=== PATIENT | female | born 1980 | race Caucasian/White ===

== ENCOUNTER 2022-11-03 10:53 | Emergency (ER) | payer OTHER ==
[~2022-11-03] VITALS: Ht 147.3 cm; Wt 92.0 kg
[2022-11-03 12:12] LABS: HEMATOCRIT 39.9 % (36.0-47.0); MEAN CORPUSCULAR HEMOGLOBIN 31.3 pg (27.0-33.0); MEAN CORPUSCULAR HGB CONC 32.6 g/dl (32.0-36.5); MEAN CORPUSCULAR VOLUME 95.9 fl (80.0-96.0); PLATELET COUNT, AUTOMATED 291 10^3/uL (150-450); RED BLOOD COUNT 4.16 10^6/uL (4.00-5.40); WHITE BLOOD COUNT 8.1 10^3/uL (4.0-10.0)
[2022-11-03 12:36] LABS: BLOOD UREA NITROGEN 10 MG/DL (9-23); CALCIUM LEVEL 8.6 MG/DL (8.5-10.1); CARBON DIOXIDE LEVEL 27 MMOL/L (20-31); CHLORIDE LEVEL 106 MMOL/L (98-107); CREATININE FOR GFR 0.82 MG/DL (0.55-1.30); GLOMERULAR FILTRATION RATE > 60.0 (>58); GLUCOSE, FASTING 83 MG/DL (60-100); POTASSIUM SERUM 3.9 MMOL/L (3.5-5.1); SODIUM LEVEL 142 MMOL/L (136-145)
[2022-11-03 12:49] LABS: HCG, SERUM QUALITATIVE NEGATIVE (NEGATIVE)
[2022-11-03] MEDS ORDERED: DULO1CAP4 PO (13:19)
[2022-11-03] MEDS ORDERED: LEVO2TA PO (13:19)
[2022-11-03] MEDS ORDERED: PANT40TA29 PO (13:19)
[2022-11-03] MEDS ORDERED: CETI-24 PO (13:19)
[2022-11-03] MEDS ORDERED: ISOVUE-370 76% 100ML VIAL As Ordered ONE (14:03)
[2022-11-03 14:24] LABS: INR 0.89; PROTHROMBIN TIME 12.2 SECONDS (12.5-14.5)
[2022-11-03 14:25] LABS: PARTIAL THROMBOPLASTIN TIME 24.7 SECONDS (24.8-34.2)
[2022-11-03] MEDS ORDERED: ONDANSETRON 4MG 2ML VIAL IV ONE (14:30)
[2022-11-03] MEDS ORDERED: HEPARIN DRIP 25,000 UNITS in IV 1 EA IV SCH (15:25)
[2022-11-03] MEDS ORDERED: HEPARIN SOD (PORCINE) 5000UNITS/ML 1ML VIAL/SYRINGE IV ONE (15:25)
[2022-11-03] MEDS ORDERED: NS 1,000 ML IV SCH (15:25)
[2022-11-03] MEDS ORDERED: ASPIRIN 81MG CHEW TABLET PO ONE (15:25)
[2022-11-03] MEDS ORDERED: ALPRAZolam 0.25 MG TAB PO ONE (15:40)
[2022-11-03 18:21] VITALS: BP 121/57; TEMP 97.9; O2SAT 100
== END 2022-11-03 18:29 | disposition short-term general hospital (02) ==
LOC: M ED 10:53
DX: I21.4 Non-ST elevation (NSTEMI) myocardial infarction (principal); K21.9 Gastro-esophageal reflux disease without esophagitis; F41.9 Anxiety disorder, unspecified; Z88.2 Allergy status to sulfonamides; Z88.8 Allergy status to other drugs, medicaments and biological substances; Z79.52 Long term (current) use of systemic steroids; Z79.899 Other long term (current) drug therapy
CPT/HCPCS: 70450; 71045; 71275; 80048; 84484; 84703; 85027; 85610; 85730; 87635; 93005; 93041; 94760; 96374; 96375; 99285; J2405; Q9967

== ENCOUNTER 2023-01-12 21:07 | Observation (INO) | payer OTHER ==
[~2023-01-12] VITALS: Ht 147.3 cm; Wt 93.8 kg
[~2023-01-12 21:07] MED LIST: CETI-24 PO; DULO1CAP4 PO; LEVO2TA PO; PANT40TA29 PO
[2023-01-12 21:51] LABS: BASO # 0.1 10^3/uL (0.0-0.2); BASO % 0.5 % (0.0-1.0); EOS # 0.1 10^3/uL (0.0-0.5); EOS % 0.6 % (0.0-3.0); HEMATOCRIT 40.8 % (36.0-47.0); HEMOGLOBIN 12.9 g/dl (12.0-15.5); LYMPH # 1.4 10^3/uL (1.5-5.0); LYMPH % 13.1 % (24.0-44.0); MEAN CORPUSCULAR HGB CONC 31.6 g/dl (32.0-36.5); MEAN CORPUSCULAR VOLUME 88.5 fl (80.0-96.0); MONO # 0.6 10^3/uL (0.0-0.8); MONO % 5.9 % (2.0-8.0); NEUTROPHILS # 8.5 10^3/uL (1.5-8.5); NEUTROPHILS % 79.5 % (36.0-66.0); PLATELET COUNT, AUTOMATED 342 10^3/uL (150-450); RED BLOOD COUNT 4.61 10^6/uL (4.00-5.40); WHITE BLOOD COUNT 10.7 10^3/uL (4.0-10.0)
[2023-01-12 22:16] LABS: CK-MB VALUE MASS 1.3 NG/ML (<3.6)
[2023-01-12 22:17] LABS: BLOOD UREA NITROGEN 10 MG/DL (9-23); CALCIUM LEVEL 9.1 MG/DL (8.5-10.1); CARBON DIOXIDE LEVEL 23 MMOL/L (20-31); CHLORIDE LEVEL 107 MMOL/L (98-107); CPK CREATINE PHOSPHOKINASE 53 U/L (34-145); CREATININE FOR GFR 0.73 MG/DL (0.55-1.30); GLOMERULAR FILTRATION RATE > 60.0 (>58); GLUCOSE, FASTING 80 MG/DL (60-100); MB/CK RELATIVE INDEX 2.45 (< OR =4); POTASSIUM SERUM 3.3 MMOL/L (3.5-5.1); SODIUM LEVEL 140 MMOL/L (136-145)
[2023-01-12] MEDS ORDERED: HEPARIN DRIP 25,000 UNITS in IV 1 EA IV SCH (22:35)
[2023-01-12 22:59] LABS: INR 0.98; PROTHROMBIN TIME 12.7 SECONDS (12.5-14.5)
[2023-01-12 23:00] LABS: PARTIAL THROMBOPLASTIN TIME 23.9 SECONDS (24.8-34.2)
[2023-01-12 23:08] LABS: CK-MB VALUE MASS < 1.0 NG/ML (<3.6)
[2023-01-12 23:09] LABS: CPK CREATINE PHOSPHOKINASE 42 U/L (34-145); MB/CK RELATIVE INDEX 2.38 (< OR =4)
[2023-01-12] MEDS ORDERED: ISOVUE-370 76% 100ML VIAL As Ordered ONE (23:20)
[2023-01-13] MEDS ORDERED: ONDANSETRON 4MG 2ML VIAL As Ordered ONE (02:09)
[2023-01-13 04:04] LABS: CK-MB VALUE MASS < 1.0 NG/ML (<3.6)
[2023-01-13 04:09] LABS: CPK CREATINE PHOSPHOKINASE 39 U/L (34-145); MB/CK RELATIVE INDEX 2.56 (< OR =4)
[2023-01-13] MEDS ORDERED: DULoxetine 20MG CAP (CYMBALTA) PO ONE (05:15)
[2023-01-13 05:16] LABS: INR 1.1; PROTHROMBIN TIME 13.9 SECONDS (12.5-14.5)
[2023-01-13 05:17] LABS: PARTIAL THROMBOPLASTIN TIME 39.1 SECONDS (24.8-34.2)
[2023-01-13] MEDS ORDERED: LEVOTHYROXINE 100MCG TABLET (0.1MG) PO SCH (06:00)
[2023-01-13] MEDS ORDERED: DULoxetine 20MG CAP (CYMBALTA) PO SCH (09:00)
[2023-01-13] MEDS ORDERED: ONDANSETRON 4MG 2ML VIAL IV ONE (09:40)
[2023-01-13 11:39] LABS: INR 1.07; PROTHROMBIN TIME 13.6 SECONDS (12.5-14.5)
[2023-01-13 11:40] LABS: PARTIAL THROMBOPLASTIN TIME 46.6 SECONDS (24.8-34.2)
[2023-01-13] MEDS ORDERED: HEPARIN SOD (PORCINE) 5000UNITS/ML 1ML VIAL/SYRINGE IV PRN (11:50)
[2023-01-13] MEDS ORDERED: HEPARIN DRIP 25,000 UNITS in IV 1 EA IV SCH (11:50)
[2023-01-13] MEDS ORDERED: NITROGLYCERIN 0.4MG SUBL TABLET SL PRN (14:25)
[2023-01-13] MEDS ORDERED: MED REC IN PROGRESS XX SCH (14:40)
[2023-01-13] MEDS ORDERED: ROSU10TA6 PO (14:46)
[2023-01-13] MEDS ORDERED: CONT1TAB PO (14:46)
[2023-01-13] MEDS ORDERED: METO1TAB32 PO (14:46)
[2023-01-13] MEDS ORDERED: HOME MED LIST COMPLETE! XX SCH (15:00)
[2023-01-13 15:10] LABS: CHOLESTEROL LEVEL 162 MG/DL (<200); CHOLESTEROL RISK RATIO 2.27 (<5); HDL CHOLESTEROL 71.1 MG/DL (>40); LDL CHOLESTEROL 57.7 MG/DL (<100); NON-HDL-C 90.9 MG/DL; TRIGLYCERIDES LEVEL 166 MG/DL (<150)
[2023-01-13] MEDS ORDERED: dilTIAZem 60 MG TAB PO ONE (15:10)
[2023-01-13] MEDS: CETIRIZINE (ZyrTEC) 10 MG TAB PO SCH (15:29)
[2023-01-13] MEDS: PANTOPRAZOLE 40MG TAB (PROTONIX) PO SCH (15:29)
[2023-01-13] MEDS: ROSUVASTATIN 10 MG TAB (CRESTOR) PO SCH (15:30)
[2023-01-13 15:57] LABS: HEMOGLOBIN A1c 4.3 % (4.0-6.0)
[2023-01-13 16:18] VITALS: BP 121/60; TEMP 97.8; O2SAT 95
[2023-01-13 20:23] VITALS: BP 105/59; TEMP 97.6; O2SAT 100
[2023-01-13] MEDS ORDERED: dilTIAZem 60 MG TAB PO SCH ×2 (21:00)
[2023-01-14 00:10] VITALS: BP 104/52; TEMP 98.3; O2SAT 97
[2023-01-14 04:36] VITALS: BP 104/58; TEMP 98.2; O2SAT 95
[2023-01-14] MEDS ORDERED: dilTIAZem 30 MG TAB PO SCH (06:00)
[2023-01-14] MEDS ORDERED: LEVOTHYROXINE 150MCG TABLET (0.15MG) PO SCH (06:00)
[2023-01-14 06:54] LABS: HEMATOCRIT 33.2 % (36.0-47.0); MEAN CORPUSCULAR HEMOGLOBIN 28.2 pg (27.0-33.0); MEAN CORPUSCULAR HGB CONC 31.9 g/dl (32.0-36.5); MEAN CORPUSCULAR VOLUME 88.3 fl (80.0-96.0); PLATELET COUNT, AUTOMATED 281 10^3/uL (150-450); RED BLOOD COUNT 3.76 10^6/uL (4.00-5.40)
[2023-01-14 06:59] LABS: HEMOGLOBIN 10.6 g/dl (12.0-15.5)
[2023-01-14 07:45] VITALS: BP 94/51; TEMP 97.8; O2SAT 99
[2023-01-14] MEDS ORDERED: ONDANSETRON 4MG 2ML VIAL IV ONE (07:55)
[2023-01-14 08:50] VITALS: BP 114/52
[2023-01-14] MEDS: PANTOPRAZOLE 40MG TAB (PROTONIX) PO SCH (08:53)
[2023-01-14 08:55] VITALS: BP 112/72
[2023-01-14] MEDS ORDERED: ENOXAPARIN 40MG/0.4ML SYRINGE (J1650 PER 10MG) SC SCH (09:00)
[2023-01-14] MEDS: CETIRIZINE (ZyrTEC) 10 MG TAB PO SCH (09:00)
[2023-01-14] MEDS: ROSUVASTATIN 10 MG TAB (CRESTOR) PO SCH (09:00)
[2023-01-14] MEDS ORDERED: LEVO150T7 PO (09:13)
[2023-01-14] MEDS ORDERED: NITR4TASL SL (09:13)
[2023-01-14] MEDS ORDERED: CARD40TA PO (09:13)
[2023-01-14 13:56] LABS: BLOOD UREA NITROGEN 9 MG/DL (7-21); CARBON DIOXIDE LEVEL 22 MEQ/L (22-30); CHLORIDE LEVEL 108 MEQ/L (98-107); CREATININE FOR GFR 0.7 MG/DL (0.7-1.5); GLOMERULAR FILTRATION RATE > 60.0 (>58); GLUCOSE, FASTING 93 MG/DL (70-99); POTASSIUM SERUM 3.5 MEQ/L (3.6-5.0); SODIUM LEVEL 141 MEQ/L (134-153)
[2023-01-14] MEDS ORDERED: POTA-298 PO (14:09)
[2023-01-14] MEDS ORDERED: DULoxetine 20MG CAP (CYMBALTA) PO SCH (21:00)
== END 2023-01-14 13:53 | disposition home or self-care (01) ==
LOC: EDBD 21:07 → M ED 21:07 → M ED INP 01-13 14:21 → M PCU 01-13 16:08
PROVIDERS: ADMIT Internal Medicine; ATTEND Internal Medicine
DX: R07.89 Other chest pain (principal); I20.89 Other forms of angina pectoris; R79.89 Other specified abnormal findings of blood chemistry; T38.1X5A Adverse effect of thyroid hormones and substitutes, initial encounter; E03.9 Hypothyroidism, unspecified; E78.5 Hyperlipidemia, unspecified; G25.81 Restless legs syndrome; Z88.2 Allergy status to sulfonamides; Z79.899 Other long term (current) drug therapy
CPT/HCPCS: 36415; 71045; 71275; 80047; 80048; 80061; 82550; 82553; 83036; 84443; 84484; 85025; 85027; 85610; 85730; 87486; 87581; 87633; 87798; 93005; 93041; 93306; 94760; 96361; 96372; 96374; 99285; J1650; J2405; Q9967

== ENCOUNTER 2023-04-15 09:15 | Observation (INO) | payer OTHER ==
[~2023-04-15] VITALS: Ht 147.3 cm; Wt 94.5 kg
[~2023-04-15 09:15] MED LIST changes: +CARD40TA PO; +CONT1TAB PO; +LEVO150T7 PO; +METO1TAB32 PO; +NITR4TASL SL; +POTA-298 PO; +ROSU10TA6 PO
[2023-04-15] MEDS ORDERED: NITROGLYCERIN 2% OINT 1 GM *U/D* PKT TOP ONE (09:40)
[2023-04-15] MEDS ORDERED: ASPIRIN 325 MG TAB PO ONE (09:40)
[2023-04-15 10:27] LABS: BASO # 0.1 10^3/uL (0.0-0.2); BASO % 0.6 % (0.0-1.0); EOS # 0.1 10^3/uL (0.0-0.5); EOS % 0.9 % (0.0-3.0); HEMATOCRIT 35.9 % (36.0-47.0); HEMOGLOBIN 10.7 g/dl (12.0-15.5); LYMPH # 1.5 10^3/uL (1.5-5.0); LYMPH % 19.2 % (24.0-44.0); MEAN CORPUSCULAR HEMOGLOBIN 23.5 pg (27.0-33.0); MEAN CORPUSCULAR HGB CONC 29.8 g/dl (32.0-36.5); MEAN CORPUSCULAR VOLUME 78.9 fl (80.0-96.0); MONO # 0.7 10^3/uL (0.0-0.8); MONO % 8.3 % (2.0-8.0); NEUTROPHILS # 5.5 10^3/uL (1.5-8.5); NEUTROPHILS % 70.7 % (36.0-66.0); PLATELET COUNT, AUTOMATED 276 10^3/uL (150-450); RED BLOOD COUNT 4.55 10^6/uL (4.00-5.40); WHITE BLOOD COUNT 7.8 10^3/uL (4.0-10.0)
[2023-04-15 10:42] LABS: CK-MB VALUE MASS < 1.0 NG/ML (<3.6); LIPASE 70 U/L (12-53)
[2023-04-15 10:44] LABS: ALBUMIN 3.6 G/DL (3.2-5.2); ALKALINE PHOSPHATASE 100 U/L (46-116); ALT/SGPT 24 U/L (7.0-40); AST/SGOT 40 U/L (<34); BILIRUBIN,DIRECT < 0.1 MG/DL (<0.4); BILIRUBIN,TOTAL 0.3 MG/DL (0.3-1.2); BLOOD UREA NITROGEN 8 MG/DL (9-23); CALCIUM LEVEL 8.8 MG/DL (8.5-10.1); CARBON DIOXIDE LEVEL 25 MMOL/L (20-31); CHLORIDE LEVEL 110 MMOL/L (98-107); CREATININE FOR GFR 0.69 MG/DL (0.55-1.30); GLOMERULAR FILTRATION RATE > 60.0 (>58); GLUCOSE, FASTING 87 MG/DL (60-100); POTASSIUM SERUM 4.3 MMOL/L (3.5-5.1); SODIUM LEVEL 142 MMOL/L (136-145); TOTAL PROTEIN 7.2 G/DL (5.7-8.2)
[2023-04-15 10:45] LABS: THYROID STIMULATING HORMONE 0.036 uIU/ML (0.55-4.78)
[2023-04-15 10:49] LABS: INR 1.01; PARTIAL THROMBOPLASTIN TIME 23.2 SECONDS (24.8-34.2)
[2023-04-15 11:00] LABS: HCG, SERUM QUALITATIVE NEGATIVE (NEGATIVE)
[2023-04-15 11:13] LABS: CPK CREATINE PHOSPHOKINASE 56 U/L (34-145); MB/CK RELATIVE INDEX 1.78 (< OR =4)
[2023-04-15] MEDS ORDERED: HEPARIN SOD (PORCINE) 5000UNITS/ML 1ML VIAL/SYRINGE IV ONE (11:20)
[2023-04-15] MEDS ORDERED: HEPARIN DRIP 25,000 UNITS in IV 1 EA IV SCH (11:20)
[2023-04-15 11:31] LABS: RSV AMPLIFICATION NEGATIVE (NEGATIVE)
[2023-04-15 11:59] LABS: CK-MB VALUE MASS < 1.0 NG/ML (<3.6)
[2023-04-15 12:02] LABS: CPK CREATINE PHOSPHOKINASE 43 U/L (34-145); MB/CK RELATIVE INDEX 2.32 (< OR =4)
[2023-04-15 12:06] LABS: D-DIMER QUANT 0.27 ug/mL (<0.5)
[2023-04-15] MEDS ORDERED: ONDANSETRON 4MG 2ML VIAL IV ONE (12:45)
[2023-04-15] MEDS: PANTOPRAZOLE 40MG VIAL IV ONE ×2 (12:45→13:52)
[2023-04-15] MEDS ORDERED: MED REC IN PROGRESS XX SCH (12:50)
[2023-04-15] MEDS ORDERED: ONDANSETRON 4MG 2ML VIAL IV PRN (13:30)
[2023-04-15 14:34] LABS: IRON (FE) 14 UG/DL (50-170); PERCENT SATURATION 3.6 % (13.2-45.0); TOTAL IRON BINDING CAPACITY 387 UG/DL (250-425)
[2023-04-15 14:36] LABS: FERRITIN 4.5 NG/ML (7.3-270.7); VITAMIN B12 LEVEL 216 PG/ML (211-911)
[2023-04-15 14:40] LABS: FOLATE 9.91 NG/ML (>5.4)
[2023-04-15] MEDS ORDERED: PANTOPRAZOLE 40MG VIAL IV SCH (15:00)
[2023-04-15] MEDS ORDERED: AMOX500T PO (15:26)
[2023-04-15] MEDS ORDERED: ASPI81CH33 PO (15:26)
[2023-04-15] MEDS ORDERED: NITROGLYCERIN 0.3MG SUBL TAB SL PRN (16:10)
[2023-04-15] MEDS ORDERED: ASPI81TA26 PO (16:33)
[2023-04-15] MEDS ORDERED: HOME MED LIST COMPLETE! XX SCH (16:35)
[2023-04-15 17:50] VITALS: BP 142/71; TEMP 97.8; O2SAT 100
[2023-04-15] MEDS: SUCRALFATE SUSP 1GM/10ML UD PO SCH (18:15)
[2023-04-15] MEDS: PANTOPRAZOLE 40MG VIAL IV SCH (18:15)
[2023-04-15 18:43] LABS: APPEARANCE, URINE HAZY (CLEAR); BACTERIA, URINE AUTO NEGATIVE (NEGATIVE); BILIRUBIN, URINE AUTO NEGATIVE (NEGATIVE); BLOOD, URINE BLOOD NEGATIVE (NEGATIVE); COLOR, URINE YELLOW (YELLOW); GLUCOSE, URINE (UA) AUTO NEGATIVE (NEGATIVE); KETONE, URINE AUTO TRACE mg/dL (NEGATIVE); LEUKOCYTE ESTERASE, URINE AUTO 1+ (NEGATIVE); MUCUS, URINE SMALL (NEGATIVE); NITRITE, URINE AUTO NEGATIVE (NEGATIVE); PROTEIN, URINE AUTO 1+ mg/dL (NEGATIVE); RBC, URINE AUTO 2 /HPF (0-3); SPECIFIC GRAVITY URINE AUTO 1.029 (1.002-1.035); SQUAMOUS EPITHELIAL CELL UR AU 11 /HPF (0-6); UROBILINOGEN, URINE AUTO 0.2 mg/dL (0.0-2.0); WBC, URINE AUTO 14 /HPF (0-3)
[2023-04-15 19:15] LABS: CK-MB VALUE MASS < 1.0 NG/ML (<3.6); CPK CREATINE PHOSPHOKINASE 46 U/L (34-145); MB/CK RELATIVE INDEX 2.17 (< OR =4)
[2023-04-15] MEDS: AMOXICILLIN 500 MG CAP PO SCH (20:58)
[2023-04-15] MEDS: dilTIAZem 30 MG TAB PO SCH (20:58)
[2023-04-15] MEDS: DOCUSATE SODIUM 100MG CAPSULE PO SCH (20:59)
[2023-04-15 21:00] VITALS: BP 136/64; TEMP 97.8; O2SAT 97
[2023-04-15] MEDS ORDERED: CETIRIZINE (ZyrTEC) 10 MG TAB PO SCH (21:00)
[2023-04-15] MEDS ORDERED: ROSUVASTATIN 10 MG TAB (CRESTOR) PO SCH (21:00)
[2023-04-15] MEDS ORDERED: DULoxetine 20MG CAP (CYMBALTA) PO SCH (21:00)
[2023-04-15] MEDS: ACETAMINOPHEN TAB 650MG DOSE (2X325MG) PO PRN (21:40)
[2023-04-15 22:00] VITALS: BP 116/70; TEMP 98.2; O2SAT 97
[2023-04-16 00:10] VITALS: BP 105/52; TEMP 98.7; O2SAT 99
[2023-04-16] MEDS: SUCRALFATE SUSP 1GM/10ML UD PO SCH ×3 (02:10→11:08)
[2023-04-16 04:45] VITALS: BP 125/67; TEMP 98.4; O2SAT 96
[2023-04-16] MEDS ORDERED: LEVOTHYROXINE 150MCG TABLET (0.15MG) PO SCH (06:00)
[2023-04-16] MEDS: PANTOPRAZOLE 40MG VIAL IV SCH (06:43)
[2023-04-16 07:14] LABS: BASO % 0.6 % (0.0-1.0); EOS # 0.1 10^3/uL (0.0-0.5); EOS % 1.2 % (0.0-3.0); HEMATOCRIT 33.3 % (36.0-47.0); LYMPH # 1.7 10^3/uL (1.5-5.0); LYMPH % 24.5 % (24.0-44.0); MEAN CORPUSCULAR HEMOGLOBIN 23.8 pg (27.0-33.0); MEAN CORPUSCULAR VOLUME 79.3 fl (80.0-96.0); MONO # 0.6 10^3/uL (0.0-0.8); MONO % 8.2 % (2.0-8.0); NEUTROPHILS # 4.5 10^3/uL (1.5-8.5); NEUTROPHILS % 65.2 % (36.0-66.0); PLATELET COUNT, AUTOMATED 307 10^3/uL (150-450); WHITE BLOOD COUNT 6.9 10^3/uL (4.0-10.0)
[2023-04-16 07:33] VITALS: BP 108/57; TEMP 98.7; O2SAT 97
[2023-04-16 07:39] LABS: BLOOD UREA NITROGEN 8 MG/DL (9-23); CALCIUM LEVEL 8.5 MG/DL (8.5-10.1); CARBON DIOXIDE LEVEL 26 MMOL/L (20-31); CHLORIDE LEVEL 111 MMOL/L (98-107); CK-MB VALUE MASS < 1.0 NG/ML (<3.6); CREATININE FOR GFR 0.68 MG/DL (0.55-1.30); GLOMERULAR FILTRATION RATE > 60.0 (>58); GLUCOSE, FASTING 86 MG/DL (60-100); POTASSIUM SERUM 3.8 MMOL/L (3.5-5.1); SODIUM LEVEL 142 MMOL/L (136-145)
[2023-04-16 07:40] LABS: CPK CREATINE PHOSPHOKINASE 34 U/L (34-145); MB/CK RELATIVE INDEX 2.94 (< OR =4)
[2023-04-16 08:36] LABS: AMPHETAMINES LEVEL URINE NEGATIVE (NEGATIVE); BARBITURATES URINE NEGATIVE (NEGATIVE); BENZODIAZEPINES URINE NEGATIVE (NEGATIVE); COCAINE METABOLITE URINE NEGATIVE (NEGATIVE); METHADONE URINE NEGATIVE (NEGATIVE); OPIATES URINE NEGATIVE (NEGATIVE); PHENCYCLIDINE URINE NEGATIVE (NEGATIVE)
[2023-04-16 08:37] LABS: CANNABINOIDS URINE NEGATIVE (NEGATIVE)
[2023-04-16] MEDS ORDERED: ASPIRIN 81MG ENTERIC TABLET PO SCH (09:00)
[2023-04-16] MEDS ORDERED: RIVAROXABAN 10MG TAB (XARELTO) PO SCH (09:00)
[2023-04-16 09:03] VITALS: BP 108/57
[2023-04-16] MEDS: AMOXICILLIN 500 MG CAP PO SCH (09:03)
[2023-04-16] MEDS: dilTIAZem 30 MG TAB PO SCH (09:03)
[2023-04-16] MEDS: DOCUSATE SODIUM 100MG CAPSULE PO SCH (09:04)
[2023-04-16] MEDS: ACETAMINOPHEN TAB 650MG DOSE (2X325MG) PO PRN (09:04)
[2023-04-16] MEDS ORDERED: SUCR1TA PO (11:30)
[2023-04-16] MEDS ORDERED: PANT40TA29 PO (11:30)
[2023-04-16] MEDS ORDERED: FERR324T21 PO (13:16)
== END 2023-04-16 14:40 | disposition home or self-care (01) ==
LOC: M ED 09:15 → M ED INP 09:16 → ENRESERV 15:47 → M PCU 17:52
PROVIDERS: ADMIT Internal Medicine Nephrology; ATTEND Internal Medicine Nephrology
DX: R07.89 Other chest pain (principal); I20.1 Angina pectoris with documented spasm; I50.30 Unspecified diastolic (congestive) heart failure; K22.4 Dyskinesia of esophagus; D50.9 Iron deficiency anemia, unspecified; R42 Dizziness and giddiness; K21.9 Gastro-esophageal reflux disease without esophagitis; E66.01 Morbid (severe) obesity due to excess calories; Z98.84 Bariatric surgery status; G47.33 Obstructive sleep apnea (adult) (pediatric); F41.9 Anxiety disorder, unspecified; F32.A Depression, unspecified; D56.9 Thalassemia, unspecified; I25.2 Old myocardial infarction; G25.81 Restless legs syndrome; E78.5 Hyperlipidemia, unspecified; I10 Essential (primary) hypertension; I34.0 Nonrheumatic mitral (valve) insufficiency; E03.9 Hypothyroidism, unspecified; Z79.82 Long term (current) use of aspirin; Z79.2 Long term (current) use of antibiotics; Z79.899 Other long term (current) drug therapy; Z88.2 Allergy status to sulfonamides; Z88.1 Allergy status to other antibiotic agents
CPT/HCPCS: 36415; 71045; 80048; 80076; 80307; 81001; 82550; 82553; 82607; 82728; 82746; 83550; 83690; 83880; 84439; 84443; 84484; 84703; 85025; 85379; 85610; 85730; 87631; 93005; 93041; 93306; 94760; 96374; 96375; 96376; 99285; C9113; J2405

== ENCOUNTER → 2023-08-18 | Outpatient (CLI) | payer OTHER ==
[~2023-08-18] MED LIST changes: +AMOX500T PO; +ASPI81CH33 PO; +ASPI81TA26 PO; +E-Z-GAS II EFFERVESCENT PACKET (SODIUM BICARB./CITRIC ACID/SIMETHICONE) As Ordered ONE; +E-Z-HD 98% w/w 340GM SUSP BTL As Ordered ONE; +E-Z-PAQUE 96% w/w SUSP 176GM BTL As Ordered ONE; +FERR324T21 PO; +LIQUID POLIBAR PLUS 105% w/v 750ML BTL As Ordered ONE; -ROSU10TA6 PO; +ROSU10TA61 PO; +SUCR1TA PO
== END ==
LOC: M RAD 09:14
PROVIDERS: ATTEND Surgery
DX: E66.01 Morbid (severe) obesity due to excess calories (principal)

== ENCOUNTER 2024-04-27 15:20 | Emergency (ER) | payer OTHER ==
[~2024-04-27] VITALS: Ht 147.3 cm; Wt 84.5 kg
[~2024-04-27 15:20] MED LIST changes: -E-Z-GAS II EFFERVESCENT PACKET (SODIUM BICARB./CITRIC ACID/SIMETHICONE) As Ordered ONE; -E-Z-HD 98% w/w 340GM SUSP BTL As Ordered ONE; -E-Z-PAQUE 96% w/w SUSP 176GM BTL As Ordered ONE; -LIQUID POLIBAR PLUS 105% w/v 750ML BTL As Ordered ONE
[2024-04-27 15:50] LABS: BASO % 0.6 % (0.0-1.0); EOS % 0.6 % (0.0-3.0); HEMATOCRIT 36.5 % (36.0-47.0); HEMOGLOBIN 10.7 g/dl (12.0-15.5); LYMPH # 1.5 10^3/uL (1.5-5.0); LYMPH % 21.5 % (24.0-44.0); MEAN CORPUSCULAR HEMOGLOBIN 22.3 pg (27.0-33.0); MEAN CORPUSCULAR HGB CONC 29.3 g/dl (32.0-36.5); MEAN CORPUSCULAR VOLUME 76.2 fl (80.0-96.0); MONO # 0.6 10^3/uL (0.0-0.8); MONO % 8.3 % (2.0-8.0); NEUTROPHILS # 4.7 10^3/uL (1.5-8.5); NEUTROPHILS % 68.9 % (36.0-66.0); PLATELET COUNT, AUTOMATED 337 10^3/uL (150-450); RED BLOOD COUNT 4.79 10^6/uL (4.00-5.40); WHITE BLOOD COUNT 6.8 10^3/uL (4.0-10.0)
[2024-04-27 16:04] LABS: INR 0.97; PROTHROMBIN TIME 13.2 SECONDS (12.5-14.5)
[2024-04-27 16:11] LABS: LIPASE 68 U/L (12-53)
[2024-04-27 16:14] LABS: ALBUMIN 3.3 G/DL (3.2-5.2); ALKALINE PHOSPHATASE 119 U/L (35-104); ALT/SGPT 16 U/L (7.0-40); AST/SGOT 19 U/L (<34); BILIRUBIN,DIRECT 0.1 MG/DL (<0.4); BILIRUBIN,TOTAL 0.3 MG/DL (0.3-1.2); BLOOD UREA NITROGEN 10 MG/DL (9-23); CALCIUM LEVEL 8.6 MG/DL (8.5-10.1); CARBON DIOXIDE LEVEL 26 MMOL/L (20-31); CHLORIDE LEVEL 108 MMOL/L (98-107); CK-MB VALUE MASS < 1.0 NG/ML (<3.6); CPK CREATINE PHOSPHOKINASE 44 U/L (34-145); CREATININE FOR GFR 0.64 MG/DL (0.55-1.30); GLOMERULAR FILTRATION RATE > 60.0 (>58); GLUCOSE, FASTING 101 MG/DL (60-100); MB/CK RELATIVE INDEX 2.27 (< OR =4); POTASSIUM SERUM 3.7 MMOL/L (3.5-5.1); SODIUM LEVEL 146 MMOL/L (136-145); TOTAL PROTEIN 6.6 G/DL (5.7-8.2)
[2024-04-27 16:50] LABS: HCG, SERUM QUALITATIVE NEGATIVE (NEGATIVE)
[2024-04-27 17:16] LABS: CK-MB VALUE MASS < 1.0 NG/ML (<3.6)
[2024-04-27 17:17] LABS: CPK CREATINE PHOSPHOKINASE 37 U/L (34-145)
[2024-04-27] MEDS: MORPHINE 4 MG/ML 1ML VIAL IV ONE (17:17)
[2024-04-27] MEDS ORDERED: ONDANSETRON 4MG 2ML VIAL As Ordered ONE (17:19)
[2024-04-27] MEDS: ONDANSETRON 4MG 2ML VIAL IV ONE (17:25)
[2024-04-27] MEDS ORDERED: ISOVUE-370 76% 100ML VIAL As Ordered ONE (17:33)
[2024-04-27] MEDS: MAALOX 30 ML SUSP *UDC PO ONE (18:00)
[2024-04-27] MEDS: LIDOCAINE VISCOUS 2% SOLN 15ML UDC PO ONE (18:00)
[2024-04-27] MEDS: PANTOPRAZOLE 40MG VIAL IV ONE (18:00)
[2024-04-27] MEDS: NS (Normal Saline) 0.9% 1,000 ML IV ONE (18:10)
[2024-04-27 18:55] LABS: PARTIAL THROMBOPLASTIN TIME 24.7 SECONDS (24.8-34.2)
[2024-04-27] MEDS: HEPARIN SOD (PORCINE) 5000UNITS/ML 1ML VIAL/SYRINGE IV ONE (19:31)
[2024-04-27] MEDS: ASPIRIN 81MG CHEW TABLET PO ONE (19:31)
[2024-04-27] MEDS: HEPARIN DRIP 25,000 UNITS in IV 1 EA IV SCH (19:32)
[2024-04-27 20:18] VITALS: BP 130/73; TEMP 98; O2SAT 99
[2024-04-27] MEDS: MORPHINE 2 MG/ML 1ML VIAL IV ONE (20:18)
== END 2024-04-27 20:48 | disposition short-term general hospital (02) ==
LOC: M ED 15:20
DX: I21.4 Non-ST elevation (NSTEMI) myocardial infarction (principal); I10 Essential (primary) hypertension; E78.5 Hyperlipidemia, unspecified; E03.9 Hypothyroidism, unspecified; H81.4 Vertigo of central origin; K21.9 Gastro-esophageal reflux disease without esophagitis; G47.33 Obstructive sleep apnea (adult) (pediatric); F41.9 Anxiety disorder, unspecified; F32.A Depression, unspecified; E66.9 Obesity, unspecified; Z98.84 Bariatric surgery status; Z79.2 Long term (current) use of antibiotics; Z79.82 Long term (current) use of aspirin; Z79.899 Other long term (current) drug therapy
CPT/HCPCS: 36415; 71275; 74177; 80048; 80076; 82550; 82553; 83690; 84484; 84703; 85025; 85610; 85730; 93005; 93041; 94760; 96361; 96374; 96375; 99285; J2405; J2470; Q9967

== ENCOUNTER → 2024-07-18 | Outpatient (CLI) | payer OTHER | LOC: M WHC 14:51 | PROVIDERS: ATTEND Family Medicine | DX: Z12.31 Encounter for screening mammogram for malignant neoplasm of breast (principal) ==

== ENCOUNTER 2024-11-08 14:31 | Outpatient (CLI) | payer OTHER ==
[~2024-11-08] VITALS: Ht 148.6 cm; Wt 67.3 kg
[~2024-11-08 14:31] MED LIST changes: +ALBUTEROL SULFATE 2.5 MG/0.5 ML INH CONCENTRATE NEB SOLN INH PRN; +APAP500T10 PO; +B-12100010 PO; +EPINEPHrine INJ 1 MG/ML 1ML AMP IM PRN; +FOLI1TAB11 PO; +GABA-1172 PO; +GABA-284 PO; +LEVO75CA3 PO; +METH-1164 PO; +ONDA-282 PO; +OXYC-517 PO; +SENN-117 PO; +THIA100I4 IM; +THIA100TA PO
[2024-11-08 15:35] VITALS: BP 140/93; O2SAT 96
[2024-11-08] MEDS: FERRIC CARBOXYMALTOSE 750 MG (VIAL MATE) IN 100ML NS IV ONE (15:42)
[2024-11-08 16:40] VITALS: BP 122/58; O2SAT 100
== END 2024-11-08 16:44 | disposition home or self-care (01) ==
LOC: M INFU 14:31
PROVIDERS: ATTEND Internal Medicine
DX: D50.9 Iron deficiency anemia, unspecified (principal); Z88.2 Allergy status to sulfonamides; Z88.8 Allergy status to other drugs, medicaments and biological substances; Z91.018 Allergy to other foods; Z91.013 Allergy to seafood
CPT/HCPCS: 96365; J1439